=== PATIENT | male | born 1990 | race Hispanic/Latino ===

== ENCOUNTER 2017-12-14 16:26 | Outpatient (CLI) | payer OTHER ==
--- NOTE | 2017-12-14 20:27 | RAD ---
RIGHT HAND THREE VIEWS: 12/14/17 There is a complicated partially comminuted fracture of the distal fifth metacarpal. The neck is angu lated and rotated and there is also a longitudinal fracture component to this. The remainder of the h and showed no acute injury. There is a suggestion of an old fracture at the base of the distal phalan x of the fifth digit dorsally. IMPRESSION: Subacute displaced fracture of the distal fifth metacarpal. There is some callus around it but not an abundant amount. Code T POS: HOME
== END 2017-12-14 16:27 | disposition home or self-care (01) ==
LOC: BURRAD 16:26
PROVIDERS: ATTEND Family Medicine
DX: S62.306A Unspecified fracture of fifth metacarpal bone, right hand, initial encounter for closed fracture (principal); M79.641 Pain in right hand